=== PATIENT | female | born 1965 | race Caucasian/White ===

== ENCOUNTER → 2016-07-22 | Outpatient (CLI) | payer BC ==
--- NOTE | 2016-07-22 08:54 | DIAGNOSTIC IMAGING REPORT ---
MRI OF THE RIGHT FOOT WITHOUT CONTRAST CLINICAL HISTORY: Right foot pain at base of fifth metatarsal. Fall in March 2016. COMPARISON STUDY: Right foot radiographs June 10, 2016. TECHNIQUE: Utilizing 1.5 Margarette magnet and dedicated coil, multiplanar, multiecho imaging of the right foot was performed without intravenous contrast. FINDINGS: A marker was placed on the skin at site of maximal pain. This overlies the lateral aspect of the base of the right fifth metatarsal. Alignment of the tarsometatarsal joints is anatomic. The Lisfranc ligament is intact. No marrow edema is identified to suggest a fracture. There is no marrow replacement. No mass or fluid collection is shown within the right foot. There is minimal edema adjacent to the lateral base of the right fifth metatarsal. No additional sites of soft tissue edema are present. There is an abnormal morphology of the peroneus brevis at the level of the fibular tip. This could reflect a split tear. The insertion of the peroneus brevis on the right fifth metatarsal is intact. There is minimal adjacent edema. Slight cortical irregularity base of the right fifth metatarsal is chronic. IMPRESSION: 1. No fracture or dislocation within the right foot. 2. Minimal nonspecific soft tissue edema adjacent to the lateral base of the right fifth metatarsal and the insertion of the peroneus brevis on the metatarsal. 3. Abnormal morphology of the peroneus brevis at the level the fibular tip. This raises the possibility of a split tear although is of questionable significance unless the patient has tenderness at this site. Electronically signed by: Asif Flores M.D. 07/22/2016 8:52 AM Dictated Date/Time: 07/22/2016 8:43 AM
== END | disposition home or self-care (01) ==
LOC: C.MRIBC 07:48
PROVIDERS: ATTEND Family Medicine
DX: M77.41 Metatarsalgia, right foot (principal)

== ENCOUNTER → 2017-06-21 | Outpatient (CLI) | payer BC ==
--- NOTE | 2017-06-22 07:54 | MAMMOGRAPHY REPORT ---
BILATERAL DIGITAL SCREENING MAMMOGRAM TOMOSYNTHESIS WITH CAD: 06/21/2017 CLINICAL HISTORY: Routine screening. Patient has no complaints. TECHNIQUE: Breast tomosynthesis in addition to standard 2D mammography was performed. Current study was also evaluated with a Computer Aided Detection (CAD) system. COMPARISON: Comparison is made to exams dated: 05/18/2016 mammogram, 05/16/2015 mammogram, 05/10/2014 mammogram, 05/04/2013 mammogram, 04/12/2012 mammogram, and 04/07/2011 mammogram - [facility]. BREAST COMPOSITION: There are scattered areas of fibroglandular density in both breasts. FINDINGS: The parenchymal pattern is unchanged. No developing mass, architectural distortion or clus ter of suspicious microcalcifications is seen in either breast. IMPRESSION: ACR BI-RADS CATEGORY 2: BENIGN There is no mammographic evidence of malignancy. A 1 year screening mammogram is recommended. The pa tient will receive written notification of the results. Approximately 10% of breast cancers are not detected with mammography. A negative mammographic report should not delay biopsy if a clinically suggestive mass is present. Becky Roque M.D. ay/:06/21/2017 16:36:24 Engine Room Helper: Jessica ROLON([email or web address])(Tee)(BD), [facility] letter sent: Normal 1/2 BI-RADS Code: ACR BI-RADS Category 2: Benign
== END | disposition home or self-care (01) ==
LOC: C.MAMM 14:47
PROVIDERS: ATTEND Nurse Practitioner Family
DX: Z12.31 Encounter for screening mammogram for malignant neoplasm of breast (principal)